=== PATIENT | male | born 1935 | race Caucasian/White ===

== ENCOUNTER → 2024-02-12 07:49 | Outpatient (REF) | payer MEDICARE, OTHER, SELFPAY ==
[2024-02-12 08:41] LABS: % Basophils 0.5 % (0-2); % Eosinophils 4.3 % (0-6); % Immature Granulocytes 0.5 % (0-0.5); % Lymphocytes 18.7 % (20.5-51.1); % Monocytes 11.2 % (1.7-9.3); % Neutrophils 64.8 % (42.2-75.2); Absolute Eosinophils 0.3 10^3/uL (0-0.7); Absolute Lymphocytes 1.4 10^3/uL (1.2-3.4); Absolute Monocytes 0.9 10^3/uL (0.1-0.6); Absolute Neutrophils 4.9 10^3/uL (1.4-6.5); Hematocrit 30.5 % (39.0-52.0); Hemoglobin 10.7 g/dL (13.0-18.0); Mean Corp Hgb Conc. 35.1 g/dL (33.0-37.0); Mean Corpuscular Hgb 31.2 pg (27.0-31.0); Mean Corpuscular Volume 88.9 fL (80.0-94.0); Mean Platelet Volume 9.4 fL (7.4-10.4); Nucleated Red Blood Cells % 0 % (-); Platelet Count 236 10^3/uL (130-400); Red Blood Cell Count 3.43 10^6/uL (4.70-6.10); Red Cell Dist. Width 12.4 % (11.5-14.5); White Blood Cell Count 7.6 10^3/uL (4.8-10.8)
[2024-02-12 10:37] LABS: Free T4 1.42 ng/dl (0.78-2.19)
[2024-02-12 10:51] LABS: TSH 2.69 uIU/ml (0.47-4.68)
[2024-02-12 10:52] LABS: ALT (SGPT) < 10 U/L (0-50); AST (SGOT) 18 U/L (17-59); Albumin 4.5 g/dl (3.5-5.0); Alkaline Phosphatase 65 U/L (38-126); Blood Urea Nitrogen 50 mg/dl (9-20); Calcium 10.1 mg/dl (8.4-10.2); Carbon Dioxide 27 mmol/L (22-30); Chloride 100 mmol/L (98-107); Glucose 90 mg/dl (70-99); HDL Cholesterol 36 mg/dl; LDL Cholesterol, Calculated 63 mg/dl; Potassium 4.2 mmol/L (3.5-5.1); Sodium 142 mmol/L (135-145); Total Bilirubin 0.9 mg/dl (0.2-1.3); Total Cholesterol 118 mg/dl (50-199); Triglyceride 98 mg/dl (10-149); Very Low Density Lipoprotein 19 mg/dl (0-30); eGFR 16.57
== END ==
LOC: REG 07:49
PROVIDERS: ATTENDING PHYSICIAN Physician Assistant Medical; FAMILY PHYSICIAN Family Medicine; REFERRING PHYSICIAN Specialist
DX: I10 Essential (primary) hypertension (principal); E78.2 Mixed hyperlipidemia; E03.9 Hypothyroidism, unspecified
CPT/HCPCS: 36415; 80053; 80061; 84439; 84443; 85025

== ENCOUNTER → 2024-02-24 10:28 | Outpatient (REF) | payer MEDICARE, OTHER, SELFPAY ==
[2024-02-24 20:07] LABS: ALT (SGPT) 19 U/L (0-50); AST (SGOT) 30 U/L (17-59); Albumin 4.6 g/dl (3.5-5.0); Alkaline Phosphatase 75 U/L (38-126); Blood Urea Nitrogen 51 mg/dl (9-20); Calcium 10.8 mg/dl (8.4-10.2); Carbon Dioxide 26 mmol/L (22-30); Chloride 100 mmol/L (98-107); Glucose 128 mg/dl (70-99); Potassium 5.1 mmol/L (3.5-5.1); Sodium 142 mmol/L (135-145); Total Bilirubin 0.8 mg/dl (0.2-1.3); Total Protein 7.4 g/dl (6.3-8.2); eGFR 21.84
[2024-02-25 09:59] LABS: PSA, Total - Diagnostic 5.47 ng/ml (0.0-4.0)
== END ==
LOC: CLAB 10:28
PROVIDERS: ATTENDING PHYSICIAN Physician Assistant Medical
DX: D64.9 Anemia, unspecified (principal); R79.89 Other specified abnormal findings of blood chemistry; C61 Malignant neoplasm of prostate
CPT/HCPCS: 80053; 84153

== ENCOUNTER → 2024-02-26 09:31 | Outpatient (REF) | payer MEDICARE, OTHER, SELFPAY ==
[2024-02-26 10:04] LABS: Urine Albumin Negative (Neg - Trace); Urine Bilirubin Negative (Negative); Urine Character Clear (Clear); Urine Color Yellow; Urine Glucose Negative (Negative); Urine Ketone Negative (Negative); Urine Leukocyte Trace (Negative); Urine Nitrite Positive (Negative); Urine Occult Blood Negative (Negative); Urine Urobilinogen Negative (Neg - 1+)
[2024-02-26 10:18] LABS: Urine Bacteria Many (Negative); Urine Red Blood Cell None Seen /HPF (0-2); Urine Triple Phosphate Crystal Present
[2024-02-26 10:43] LABS: Albumin 4.4 g/dl (3.5-5.0); Blood Urea Nitrogen 53 mg/dl (9-20); Carbon Dioxide 29 mmol/L (22-30); Chloride 102 mmol/L (98-107); Glucose 99 mg/dl (70-99); Phosphorus 3.6 mg/dl (2.5-4.5); Potassium 4.7 mmol/L (3.5-5.1); Sodium 143 mmol/L (135-145); eGFR 20.91
== END ==
LOC: REG 09:31
PROVIDERS: ATTENDING PHYSICIAN Specialist
DX: I10 Essential (primary) hypertension (principal)
CPT/HCPCS: 36415; 74019; 80069; 81003; 81015

== ENCOUNTER → 2024-03-01 11:49 | Outpatient (REF) | payer MEDICARE, OTHER, SELFPAY ==
[2024-03-01 13:40] LABS: Vitamin D, 25-OH*** 109 ng/mL (30-80)
[2024-03-01 13:44] LABS: Albumin 4.6 g/dl (3.5-5.0); Blood Urea Nitrogen 47 mg/dl (9-20); Calcium 10.9 mg/dl (8.4-10.2); Carbon Dioxide 27 mmol/L (22-30); Chloride 99 mmol/L (98-107); Glucose 101 mg/dl (70-99); Phosphorus 3.8 mg/dl (2.5-4.5); Potassium 4.6 mmol/L (3.5-5.1); Sodium 141 mmol/L (135-145); eGFR 22.86
[2024-03-03 05:26] LABS: Vitamin D 1,25 Dihydroxy 21.1 pg/mL (19.9-79.3)
[2024-03-03 10:25] LABS: Intact PTH 40.2 pg/ml (13.6-85.8)
== END ==
LOC: REG 11:49
PROVIDERS: ATTENDING PHYSICIAN Specialist; FAMILY PHYSICIAN Family Medicine
DX: I10 Essential (primary) hypertension (principal); E78.2 Mixed hyperlipidemia; D64.9 Anemia, unspecified; N17.9 Acute kidney failure, unspecified; R53.1 Weakness; E83.52 Hypercalcemia
CPT/HCPCS: 36415; 80069; 82306; 82652; 83970; 84155; 84165

== ENCOUNTER → 2024-03-05 16:29 | Outpatient (REF) | payer MEDICARE, OTHER, SELFPAY ==
[2024-03-05 16:52] LABS: % Basophils 0.5 % (0-2); % Eosinophils 2.7 % (0-6); % Immature Granulocytes 0.3 % (0-0.5); % Lymphocytes 19.9 % (20.5-51.1); % Monocytes 10.1 % (1.7-9.3); % Neutrophils 66.5 % (42.2-75.2); Absolute Eosinophils 0.2 10^3/uL (0-0.7); Absolute Lymphocytes 1.5 10^3/uL (1.2-3.4); Absolute Monocytes 0.8 10^3/uL (0.1-0.6); Hematocrit 31.7 % (39.0-52.0); Hemoglobin 11.1 g/dL (13.0-18.0); Mean Corpuscular Hgb 30.7 pg (27.0-31.0); Mean Corpuscular Volume 87.6 fL (80.0-94.0); Mean Platelet Volume 9.2 fL (7.4-10.4); Nucleated Red Blood Cells % 0 % (-); Platelet Count 242 10^3/uL (130-400); Red Blood Cell Count 3.62 10^6/uL (4.70-6.10); Red Cell Dist. Width 12.4 % (11.5-14.5); White Blood Cell Count 7.4 10^3/uL (4.8-10.8)
[2024-03-05 17:06] LABS: Iron 94 ug/dl (49-181)
[2024-03-05 17:15] LABS: Percent Saturation 37 % (20-50); Total Iron Binding Capacity 252 ug/dl (261-462)
[2024-03-05 18:14] LABS: Folate > 20.0 ng/ml (2.76-20); Vitamin B12 876 pg/ml (239-931)
== END ==
LOC: REG 16:29
PROVIDERS: ATTENDING PHYSICIAN Physician Assistant; FAMILY PHYSICIAN Family Medicine; REFERRING PHYSICIAN Specialist
DX: D64.9 Anemia, unspecified (principal); D51.9 Vitamin B12 deficiency anemia, unspecified
CPT/HCPCS: 36415; 82607; 82728; 82746; 83521; 83540; 83550; 84156; 85025; 86335

== ENCOUNTER → 2024-03-26 09:24 | Outpatient (REF) | payer MEDICARE, OTHER, SELFPAY ==
[2024-03-26 11:02] LABS: % Basophils 0.6 % (0-2); % Eosinophils 3.8 % (0-6); % Immature Granulocytes 0.3 % (0-0.5); % Lymphocytes 16.3 % (20.5-51.1); % Monocytes 9.7 % (1.7-9.3); % Neutrophils 69.3 % (42.2-75.2); Absolute Eosinophils 0.3 10^3/uL (0-0.7); Absolute Lymphocytes 1.1 10^3/uL (1.2-3.4); Absolute Monocytes 0.7 10^3/uL (0.1-0.6); Absolute Neutrophils 4.7 10^3/uL (1.4-6.5); Hemoglobin 12.4 g/dL (13.0-18.0); Mean Corp Hgb Conc. 33.5 g/dL (33.0-37.0); Mean Corpuscular Hgb 31.6 pg (27.0-31.0); Mean Corpuscular Volume 94.1 fL (80.0-94.0); Mean Platelet Volume 9.8 fL (7.4-10.4); Nucleated Red Blood Cells % 0 % (-); Platelet Count 257 10^3/uL (130-400); Red Blood Cell Count 3.93 10^6/uL (4.70-6.10); Red Cell Dist. Width 12.6 % (11.5-14.5); White Blood Cell Count 6.8 10^3/uL (4.8-10.8)
[2024-03-26 11:27] LABS: Albumin 4.4 g/dl (3.5-5.0); Blood Urea Nitrogen 34 mg/dl (9-20); Calcium 9.9 mg/dl (8.4-10.2); Carbon Dioxide 29 mmol/L (22-30); Chloride 103 mmol/L (98-107); Glucose 98 mg/dl (70-99); Iron 96 ug/dl (49-181); Phosphorus 3.1 mg/dl (2.5-4.5); Potassium 4.3 mmol/L (3.5-5.1); Sodium 146 mmol/L (135-145); eGFR 29.53
[2024-03-26 11:38] LABS: Percent Saturation 37 % (20-50); Total Iron Binding Capacity 256 ug/dl (261-462)
[2024-03-26 12:36] LABS: Folate > 20.0 ng/ml (2.76-20); Vitamin B12 873 pg/ml (239-931)
== END ==
LOC: REG 09:24
PROVIDERS: ATTENDING PHYSICIAN Physician Assistant
DX: D64.9 Anemia, unspecified (principal); I16.0 Hypertensive urgency
CPT/HCPCS: 36415; 80069; 82607; 82728; 82746; 83540; 83550; 85025

== ENCOUNTER → 2024-03-31 06:20 | Day surgery (SDC) | payer MEDICARE, OTHER, SELFPAY | LOC: GI 06:20 | PROVIDERS: ATTENDING PHYSICIAN Specialist | DX: K21.00 Gastro-esophageal reflux disease with esophagitis, without bleeding (principal); K44.9 Diaphragmatic hernia without obstruction or gangrene; K31.89 Other diseases of stomach and duodenum; R13.10 Dysphagia, unspecified; R63.4 Abnormal weight loss; R11.2 Nausea with vomiting, unspecified; D64.9 Anemia, unspecified; K29.50 Unspecified chronic gastritis without bleeding | CPT/HCPCS: 43239; 88305; 88312; 88342 ==

== ENCOUNTER → 2024-05-05 14:26 | Outpatient (REF) | payer MEDICARE, OTHER, SELFPAY | LOC: RAD 14:26 | PROVIDERS: ATTENDING PHYSICIAN Specialist | DX: R63.4 Abnormal weight loss (principal) | CPT/HCPCS: 74176 ==

== ENCOUNTER → 2024-05-25 11:07 | Outpatient (REF) | payer MEDICARE, OTHER, SELFPAY ==
[2024-05-25 12:05] LABS: Blood Urea Nitrogen 31 mg/dl (9-20); Calcium 10.2 mg/dl (8.4-10.2); Carbon Dioxide 29 mmol/L (22-30); Chloride 102 mmol/L (98-107); Glucose 145 mg/dl (70-99); Potassium 5.1 mmol/L (3.5-5.1); Sodium 140 mmol/L (135-145); eGFR 29.53
[2024-05-25 12:31] LABS: PSA, Total - Diagnostic 6.45 ng/ml (0.0-4.0)
== END ==
LOC: REG 11:07
PROVIDERS: ATTENDING PHYSICIAN Specialist; FAMILY PHYSICIAN Family Medicine
DX: C61 Malignant neoplasm of prostate (principal); R31.0 Gross hematuria; N13.2 Hydronephrosis with renal and ureteral calculous obstruction; N40.1 Benign prostatic hyperplasia with lower urinary tract symptoms
CPT/HCPCS: 36415; 80048; 84153

== ENCOUNTER 2024-05-27 17:34 | Emergency (ER) | payer MEDICARE, OTHER, SELFPAY ==
[2024-05-27 17:38] VITALS: BP 156/70
--- NOTE | 2024-05-27 21:01 | ED.GENMED ---
History of Present Illness
General
Chief Complaint: Weakness
Source: patient and family
Exam Limitations: none
Time Seen by Provider: 05/27/24 20:33
History of Present Illness
History of Present Illness:
This is a 89 year old male that comes in with c/o weakness. States that this has been going on for the past 3-4 days. States that his PCP and Dr. Montgomery told him to come in. States that he has been SOB with walking. States that he lives at [facility]
Mat was in the library and he was go weak to walk to get back to his room. States that they had to use a wheelchair to get him back. Family states that when this happened they felt he was a little Disoriented. States that he had had a
catheter in and then they removed it. States that they have to put it back in. States that he has hematuria. Denies any fever, chills, cough, chest pain, abd pain, nausea, vomiting, diarrhea, headache, dizziness.
Past History
Past History
ED Past Medical History: Cancer (Prostate, Skin cancer, ), HTN, Valvular disease (Mitral valve prolapse), Hypothyroidism and Other ( prostatic hypertrophy, MVP, )
ED Past Surgical History: Cholecystectomy and Other (hernia repair, prostate biopsy, Deviated septum, )
Social History
Tobacco: Former smoker
Alcohol: Occasional
Personal:
Living: with family
Employment: Retired
Review of Systems
Review of Systems
All Other Systems: ROS reviewed and negative except as documented in HPI and ROS
Constitutional: Reports no symptoms; Denies fever or chills
EENT: Reports no symptoms
Respiratory: Reports trouble breathing; Denies cough
Cardiac: Reports no symptoms; Denies chest pain
ABD/GI: Denies abdominal pain, nausea, vomiting or diarrhea
: Reports no symptoms; Denies dysuria, frequency or urgency
Musculoskeletal: Reports no symptoms
Skin: Reports no symptoms
Neurological: Reports no symptoms; Denies dizzy or headache
Psychiatric: Reports no symptoms
Phy Exam
General Physical Exam
General Presentation: well appearing and no apparent distress
General age: appears stated age
General Skin: warm and dry
General Habitus: elderly
General Mental: alert
General Hydration: appears well hydrated
ENT Exam
ENT Exam: TM's normal, pharynx normal and neck supple
Eye Exam
Eye Exam: EOMI
Cardiovascular Exam
Cardiovascular Exam: regular rate/rhythm, no murmur and normal peripheral pulses
Pulmonary Exam
Pulmonary Exam: lungs clear, no respiratory distress, no rales, chest non tender, no crackles, no rhonchi, no wheezing and no cough
Gastrointestinal Exam
Gastrointestinal Exam: normal bowel sounds, non tender, soft, no organomegaly, no pulsatile mass and non distended
Musculoskeletal Exam
Musculoskeletal Exam: full ROM and no edema
Skin Exam
Skin Exam: normal color, warm/dry, no rash and no petechia
Psychiatric Exam
Psychiatric Exam: normal mood/affect
Course
Orders/Labs/Results
Orders:
Orders
05/27/24 21:00
0.9% Sodium Chloride 1000 ml [Nss] 1,000 ml IV BOLUS
CR Chest - 2 Views Urgent
Comment:
Reason For Exam: SOB
05/27/24 21:19
Electrocardiogram (*1) Urgent
Reason for Study: Shortness of Breath
EKG- Treatment ONCE
05/27/24 21:34
COVID-19 Antigen Urgent
Source: Nasal Swab
Complete Blood Count/With Diff Urgent
Comprehensive Metabolic Panel Urgent
Troponin I Urgent
05/27/24 23:27
Urinalysis Reflex To Culture Urgent
Date Specimen was Collected: 05/27/24
Time Specimen was Collected: 23:20
Urine Microscopic Reflex Cult Urgent
Urine Culture Urgent
KIEL Source: U
Specimen Description:
Date Specimen was Collected: 05/27/24
Time Specimen was Collected: 23:20
Abnormal Lab Results
05/27/24 05/27/24
21:34 23:27
RBC 3.46 L 10^6/uL
(4.70-6.10)
Hgb 10.8 L g/dL
(13.0-18.0)
Hct 31.7 L %
(39.0-52.0)
MCH 31.2 H pg
(27.0-31.0)
Absolute Monos (auto) 1.0 H 10^3/uL
(0.1-0.6)
Lymphocytes % 15.9 L %
(20.5-51.1)
Monocytes % 10.7 H %
(1.7-9.3)
BUN 25 H mg/dl
(9-20)
Creatinine 1.8 H mg/dL
(0.7-1.3)
Ur Occult Blood Reflex 4+ A
(Negative)
Leukocyte Esterase Rfl 1+ A
(Negative)
Urine RBC >100 A /HPF
(0-2)
Urine WBC (Reflex) >100 A /HPF
(0-5)
Urine Bacteria (Reflex) Many A
(Negative)
Urine Albumin (Reflex) 1+ A
(Neg - Trace)
05/27/24 21:34
05/27/24 21:34
H/H slightly low. Dehydration. Chronic renal insufficiency Improved when compared with prior labs. Troponin <0.012, Negative for COVID.
Vital Signs
Initial and Last Documented VS:
Initial Vital Signs
Temp Pulse Resp BP Pulse Ox
97.5 F 85 18 156/70 99
05/27/24 17:38 05/27/24 17:38 05/27/24 17:38 05/27/24 17:38 05/27/24 17:38
Last Documented Vital Signs
Temp Pulse Resp BP Pulse Ox
97.5 F 85 18 141/52 97
05/27/24 17:38 05/27/24 17:38 05/27/24 17:38 05/27/24 22:50 05/27/24 22:50
MDM/Problems Addressed
Differential Diagnosis Includes:
PNA, CHF, COVID
MDM/Problems Addressed:
This is a 89 year old male that comes in with c/o SOB and weakness. States that this has been going on for the past 3-4 days.
Will check labs, Urine, give IV fluids and chest x-ray. Will also test for COVID.
Back into see patient. Explained that his blood work shows some dehydrated. HIs Troponin is normal and he is negative for COVID. Chest x-ray is negative for acute disease but there appears to be a calcification in the soft tissue of the breast. This
can be further evaluated by the PCP. IF patients urine is negative will discharge patient home.
Urine is positive for infection. You have been given IV antibiotic here and a prescription has been sent to your pharmacy. Please follow up with the family doctor. IF YOU HAVE FEVER, OR YOU HAVE ANY OTHER CONCERNS PLEASE RETURN TO THE EMERGENCY ROOM
Chronic conditions affecting care:
MVP
Acute Exacerbation and/or Progression of Chronic Illness:
MVP
*Radiology
Radiology exam reviewed: radiology read reviewed (Chest-NO acute cardioplmonary process. 2.7cm calcific density projects over the lateral left midlung zone, favored within the overlying soft tissues. Consider correlation with dedicated breast
imaging. )
*Pulse Oximetry
Patient hypoxic: no
*Mercury Washer Interpretation
Rate: Mercury Washer- N/A
*Critical Care Note
Total Time (30-74mins, 75-104mins- exclusive of procedures): Not Applicable
ED Attending Note
-
Portions of this chart may have been created with voice recognition software.� Occasional wrong word or��sound alike� substitutions may have occurred due to the inherent limitations of voice recognition software.
Discharge Plan
Departure
Patient Disposition: Home (Routine Discharge)
Date of Disposition: 05/28/24
Time of Disposition: 00:39
Patient with high blood pressure during this ER visit?: Yes
Condition: Good
Covid-19: Negative COVID-19
Discharge Problem:
Urinary tract infection
Instructions: BLOOD PRESSURE, Urinary Tract Infection - Men
Prescriptions:
New
cefdinir 300 mg capsule
300 mg PO BID Qty: 14 0RF
No Action
multivitamin with folic acid [Tab-A-Alexandra] 1 TABLET tablet
1 tab PO DAILY
levothyroxine 50 MCG tablet
50 mcg PO DAILY
cholecalciferol (vitamin D3) 2,000 UNIT tablet
2,000 unit PO DAILY
metoprolol succinate 100 mg tablet extended release 24 hr
50 mg PO DAILY
aspirin 81 mg Tablet,Delayed Release (Dr/Ec)
81 mg PO DAILY
ascorbic acid (vitamin C) 500 mg Tablet
500 mg PO DAILY
valsartan 320 mg tablet
320 mg PO DAILY
oxybutynin chloride 5 mg tablet
5 mg PO BID
nifedipine 30 mg Tablet Extended Release
30 mg PO BID Qty: 60 0RF
spironolactone 25 mg Tablet
25 mg PO DAILY Qty: 30 0RF
Referrals:
Willy Neil MD [Family Provider] - Follow up in 5-7 days
Activity Restrictions/Additional Instructions:
As discussed, your blood work shows that you are Dehydrated. Please increase your water intake to 8-8oz glasses daily. You do have urinary tract infection. You have been given IV antibiotics here and a prescription has been sent to your Pharmacy
for the next 7 days. Follow up with the family doctor for recheck and repeat urine after you have completed the antibiotics. IF YOU HAVE FEVER, OR YOU HAVE ANY OTHER CONCERNS PLEASE RETURN TO THE EMERGENCY ROOM
Interventions
Interventions:
*Risk Screen - Suicide Last Done: 05/27/24 17:38
*General Assessment Last Done: 05/27/24 17:38
*Neglect/Abuse Screening Last Done: 05/27/24 17:38
*ED COVID-19 Vaccine History Last Done: 05/27/24 17:38
Discharge Date and Time
Print Language: [id number]
[2024-05-27] MEDS: NSS 1000 IV (21:36)
[2024-05-27 21:44] LABS: % Basophils 0.6 % (0-2); % Eosinophils 4.9 % (0-6); % Immature Granulocytes 0.3 % (0-0.5); % Lymphocytes 15.9 % (20.5-51.1); % Monocytes 10.7 % (1.7-9.3); % Neutrophils 67.6 % (42.2-75.2); Absolute Basophils 0.1 10^3/uL (0-0.2); Absolute Eosinophils 0.5 10^3/uL (0-0.7); Absolute Lymphocytes 1.5 10^3/uL (1.2-3.4); Absolute Neutrophils 6.4 10^3/uL (1.4-6.5); Hematocrit 31.7 % (39.0-52.0); Hemoglobin 10.8 g/dL (13.0-18.0); Mean Corp Hgb Conc. 34.1 g/dL (33.0-37.0); Mean Corpuscular Hgb 31.2 pg (27.0-31.0); Mean Corpuscular Volume 91.6 fL (80.0-94.0); Mean Platelet Volume 8.9 fL (7.4-10.4); Nucleated Red Blood Cells % 0 % (-); Platelet Count 291 10^3/uL (130-400); Red Blood Cell Count 3.46 10^6/uL (4.70-6.10); Red Cell Dist. Width 12.4 % (11.5-14.5); White Blood Cell Count 9.5 10^3/uL (4.8-10.8)
[2024-05-27 21:59] LABS: COVID-19 Antigen Negative (Negative)
[2024-05-27 22:08] LABS: ALT (SGPT) < 10 U/L (0-50); AST (SGOT) 17 U/L (17-59); Albumin 4.1 g/dl (3.5-5.0); Alkaline Phosphatase 69 U/L (38-126); Blood Urea Nitrogen 25 mg/dl (9-20); Calcium 9.7 mg/dl (8.4-10.2); Carbon Dioxide 30 mmol/L (22-30); Chloride 98 mmol/L (98-107); Glucose 97 mg/dl (70-99); Sodium 138 mmol/L (135-145); Total Bilirubin 0.4 mg/dl (0.2-1.3); Total Protein 6.8 g/dl (6.3-8.2); Troponin I < 0.012 ng/ml; eGFR 35.54
[2024-05-27 22:50] VITALS: BP 141/52
[2024-05-27 23:37] LABS: Urine Albumin 1+ (Neg - Trace); Urine Bilirubin Negative (Negative); Urine Character Slightly Cloudy (Clear); Urine Color Yellow; Urine Glucose Negative (Negative); Urine Ketone Negative (Negative); Urine Leukocyte 1+ (Negative); Urine Nitrite Negative (Negative); Urine Occult Blood 4+ (Negative); Urine Urobilinogen Negative (Neg - 1+)
[2024-05-28 00:18] LABS: Urine Amorphous Seen; Urine Bacteria Many (Negative); Urine Red Blood Cell >100 /HPF (0-2); Urine White Cell >100 /HPF (0-5)
[2024-05-28 00:19] LABS: Urine Squamous Cell SEEN /LPF (Few)
[2024-05-28] MEDS: ROCEPHIN 1000 MG IV (00:49)
[2024-05-28 01:02] VITALS: BP 129/54
== END 2024-05-28 01:20 | disposition home or self-care (01) ==
LOC: EMR 17:34
PROVIDERS: Clinical Nurse Specialist Family Health; Emergency Medicine; EMERGENCY PHYSICIAN Emergency Medicine; FAMILY PHYSICIAN Family Medicine
DX: N39.0 Urinary tract infection, site not specified (principal); E86.0 Dehydration; I12.9 Hypertensive chronic kidney disease with stage 1 through stage 4 chronic kidney disease, or unspecified chronic kidney disease; N18.9 Chronic kidney disease, unspecified; E03.9 Hypothyroidism, unspecified; Z85.828 Personal history of other malignant neoplasm of skin; Z90.49 Acquired absence of other specified parts of digestive tract; Z85.46 Personal history of malignant neoplasm of prostate; Z87.891 Personal history of nicotine dependence
CPT/HCPCS: 96374; 96361; 99285; 71046; 80053; 81003; 81015; 84484; 85025; 87086; 87811; 93005

== ENCOUNTER → 2024-06-04 09:20 | Outpatient (REF) | payer MEDICARE, OTHER, SELFPAY ==
[2024-06-04 17:45] LABS: Urine Albumin 1+ (Neg - Trace); Urine Bilirubin Negative (Negative); Urine Character Clear (Clear); Urine Color Yellow; Urine Glucose Negative (Negative); Urine Ketone Negative (Negative); Urine Leukocyte Negative (Negative); Urine Nitrite Negative (Negative); Urine Occult Blood 2+ (Negative); Urine Specific Gravity 1.015 (<1.030); Urine Urobilinogen Negative (Neg - 1+)
[2024-06-04 18:21] LABS: Urine Squamous Cell None seen /LPF (Few)
[2024-06-04 18:22] LABS: Urine Mucus Few; Urine Red Blood Cell 26-30 /HPF (0-2)
[2024-06-04 18:23] LABS: Urine Bacteria Few (Negative)
== END ==
LOC: CLAB 09:20
PROVIDERS: ATTENDING PHYSICIAN Physician Assistant Medical
DX: N30.00 Acute cystitis without hematuria (principal)
CPT/HCPCS: 81003; 81015; 87086